=== PATIENT | male | born 1990 | race Two or more races ===

== ENCOUNTER 2018-09-22 07:00 | Outpatient (CLI) | payer OTHER | END 2018-09-22 07:10 | disposition home or self-care (01) | LOC: LAB 07:00 | DX: Z13.89 Encounter for screening for other disorder (principal) ==

== ENCOUNTER 2018-09-22 08:21 | Outpatient (CLI) | payer OTHER | END 2018-09-22 08:41 | disposition home or self-care (01) | LOC: MRI 08:21 | DX: K85.10 Biliary acute pancreatitis without necrosis or infection (principal); K50.00 Crohn's disease of small intestine without complications | CPT/HCPCS: 74181 ==

== ENCOUNTER 2018-09-24 08:14 | Outpatient (CLI) | payer OTHER | END 2018-09-24 08:37 | disposition home or self-care (01) | LOC: NUCLEAR 08:14 | DX: K31.84 Gastroparesis (principal) | CPT/HCPCS: 78264; A9541 ==

== ENCOUNTER 2018-09-29 07:43 | Outpatient (CLI) | payer OTHER | END 2018-09-29 07:46 | disposition home or self-care (01) | LOC: RX STUDY 07:43 | DX: K50.90 Crohn's disease, unspecified, without complications (principal) ==